=== PATIENT | male | born 1985 | race Caucasian/White ===

== ENCOUNTER 2016-12-14 18:21 | Emergency (ER) | payer OTHER, MEDICAID ==
[~2016-12-14] VITALS: Ht 190.5 cm; Wt 88.5 kg
[2016-12-14 18:23] VITALS: BP 119/63; PULSE 86; RESP 17; TEMP 98.1; O2SAT 100
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
[2016-12-14] MEDS ORDERED: METH40TA PO (18:51)
[2016-12-14] MEDS ORDERED: NEOMYCIN/POLYMYXIN/BACITRACIN OINT 15 GM TUBE TOPICAL ONE (19:00)
[2016-12-14] MEDS ORDERED: IBUPROFEN 800 MG TAB PO ONE (19:00)
[2016-12-14 19:25] LABS: AMPHETAMINE, URINE NEG (NEG); BARBITURATES, URINE NEG (NEG); COCAINE, URINE POS (NEG)
[2016-12-14 19:26] LABS: BLOOD, URINE NEG (NEG); COMMENT (UR) CULT NOT INDICATED; CULTURE IF INDICATED CULT NOT INDICATED; GLUCOSE,URINE NEG (NEG); KETONE, URINE NEG (NEG); MUCUS URINE FEW /lpf (OCC); NITRITE,URINE NEG (NEG); PH, URINE 5.5 (5.0-8.5); URINE COLOR YELLOW (YELLW/STRAW)
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
[2016-12-14] MEDS ORDERED: IBUP-232 PO (20:02)
[2016-12-14] MEDS ORDERED: BACI500O9 TOPICAL (20:02)
== END 2016-12-14 20:38 | disposition home or self-care (01) ==
LOC: NEPD 18:21
DX: S40.211A Abrasion of right shoulder, initial encounter (principal); S80.211A Abrasion, right knee, initial encounter; S60.811A Abrasion of right wrist, initial encounter; V29.9XXA Motorcycle rider (driver) (passenger) injured in unspecified traffic accident, initial encounter; Z79.891 Long term (current) use of opiate analgesic
CPT/HCPCS: 73030; 73610; 80307; 81001; 99284